=== PATIENT | female | born 1985 | race Hispanic/Latino ===

== ENCOUNTER → 2017-09-14 | Outpatient (CLI) | payer BC ==
--- NOTE | 2017-09-14 09:19 | Diagnostic Imaging Report ---
PROCEDURE:US LIVER COMPARISON:None. INDICATIONS:Elevated Liver Enzymes TECHNIQUE: Miller-scale and color doppler transverse and longitudinal images of the right upper quadrant of the abdomen were obtained. FINDINGS:Suboptimal examination secondary to patient body habitus Liver: 17 cm in right mid-clavicular line. Normal parenchymal echogenicity. No masses. Main portal vein: 1.1 cm in caliber. Hepatopedal flow. Gallbladder: Surgically removed. Common Bile Duct: 0.3 cm in caliber. Right kidney: 12.9 cm in caliber.. Normal echogenicity. No solid masses or hydronephrosis. Pancreas: The visualized portions are unremarkable. Inferior vena cava: Patent Aorta: Non-aneurysmal Ascites: None in the right upper quadrant of the abdomen. CONCLUSION: Mild hepatomegaly without focal mass. Status post cholecystectomy. Dictated by: Aman Sandy M.D. on 09/14/2017 at 9:21 Electronically approved by: Aman Sandy M.D. on 09/14/2017 at 9:21
== END ==
LOC: US 08:08
PROVIDERS: ATTEND Family Medicine
DX: R74.8 Abnormal levels of other serum enzymes (principal)
CPT/HCPCS: 76705